=== PATIENT | male | born 2000 | race Caucasian/White ===

== ENCOUNTER 2022-06-11 20:28 | Inpatient (IN) ==
[2022-06-11] MEDS ORDERED: ETOMIDATE 20 MG/10 ML VIAL IV STA (20:48)
[2022-06-11] MEDS ORDERED: SODIUM CHLORIDE 0.9% 1,000 ML IV STA ×2 (20:48→20:49)
[2022-06-11] MEDS ORDERED: ROCURONIUM 100 MG/10 ML VIAL IV STA (20:48)
[2022-06-11 20:57] LABS: Hematocrit 45.7 VOL% (42.0-52.0); Hemoglobin 15.8 GM/DL (14.0-18.0); Immature Granulocytes % 0.2 %; Immature Granulocytes Absolute 0.02 #; Lymphocytes # 0.4 10*3/uL (1.4-4.0); Lymphocytes % 4.9 % (21.2-54.2); Mean Corpuscular HGB Conc 34.6 GM/DL (32-36); Mean Corpuscular Volume 86.7 FL (87-102); Monocytes # 0.4 10*3/uL (0.11-0.8); Monocytes % 4.7 % (1.7-12.7); Neutrophils % 90.2 % (38.7-73.9); Platelet Count 188 T/CUMM (130-400); Red Blood Count 5.27 MC/CUMM (3.8-5.5); Red Cell Distribution Width 12.3 % (9.3-17.3); White Blood Count 8.7 T/CUMM (4-12)
[2022-06-11 21:05] LABS: INR 0.9; PT Patient Result 10.4 SECS (10.1-12.1)
[2022-06-11 21:12] LABS: Bilirubin,Urine Negative (Negative); Glucose,Urine (UA) Negative (Negative); Hyaline Casts,Urine 8 /LPF (0-3); Ketones,Urine Trace mg/dL (Negative); Mucus,Urine Occasional /LPF (Occasional); Nitrite,Urine Negative (Negative); Protein,Urine 30 mg/dL (Negative); RBC,Urine 8 /HPF (0-4); Squamous Epithelial Cell,Urine Occasional /HPF (0-10); Urine Appearance Clear (Clear); Urine Color Yellow (Yellow); Urine Specific Gravity > 1.030 (1.001-1.035); Urine pH 5.5 (4.5-8.0)
[2022-06-11 21:13] LABS: Blood, Urine Negative (Negative); Urine Urobilinogen 0.2 eU/dL (<2.0)
[2022-06-11 21:25] LABS: Barbiturates Screen,Urine Negative (Negative); Benzodiazepines Screen,Urine Negative (Negative); Cannabinoid Screen,Urine Negative (Negative); Opiate Screen,Urine Negative (Negative); Phencyclidine Screen,Urine Negative (Negative)
[2022-06-11 21:27] LABS: Alanine Aminotransferase 35 U/L (16-61); Alkaline Phosphatase 116 U/L (45-117); Aspartate Amino Transferase 46 U/L (0-37); Blood Urea Nitrogen 21 MG/DL (7-18); Calcium 9.6 MG/DL (8.5-10.1); Carbon Dioxide 21 MMOL/L (21-32); Chloride 107 MMOL/L (98-107); Glucose 145 MG/DL (74-106); Osmolality,Calculated 284.4 MOS/KG (273-304); Potassium 4.4 MMOL/L (3.5-5.1); Sodium 140 MMOL/L (136-145); Total Protein 7.5 G/DL (6.4-8.2)
[2022-06-11 21:33] LABS: Band Neutrophils 21 % (0-10); Lymphocytes 6 % (20-55); Platelet Estimate Normal; Total Cells Counted 100
[2022-06-11] MEDS ORDERED: PIPERACILLIN/TAZOBACTAM 3,375 MG in SODIUM CHLORIDE 0.9% 100 ML IV STA (22:02)
[2022-06-11 22:03] LABS: Arterial Base Excess iSTAT -4 MMOL/L (-2.5-2.5); Arterial Bicarbonate iSTAT 26.4 MMOL/L (20-26); Arterial O2 Saturation iSTAT 100 % (95-100); Arterial PCO2 iSTAT 70 MM HG (35-48); Arterial PO2 iSTAT 276 MM HG (80-95); Arterial Total CO2 iSTAT 28 MMO/L (23-27); Arterial pH iSTAT 7.183 (7.35-7.45)
[2022-06-12 00:55] LABS: Arterial Base Excess iSTAT -6 MMOL/L (-2.5-2.5); Arterial Bicarbonate iSTAT 20.8 MMOL/L (20-26); Arterial O2 Saturation iSTAT 94 % (95-100); Arterial PCO2 iSTAT 46 MM HG (35-48); Arterial PO2 iSTAT 82 MM HG (80-95); Arterial Total CO2 iSTAT 22 MMO/L (23-27); Arterial pH iSTAT 7.259 (7.35-7.45)
[2022-06-12] MEDS ORDERED: SODIUM CHLORIDE 0.9% 1,000 ML IV SCH (01:00)
[2022-06-12] MEDS ORDERED: INFLUENZA VIRUS VACCINE 0.5 ML SYRINGE IM ONE (01:40)
[2022-06-12] MEDS: NOREPINEPHRINE DRIP 8 MG/250 ML PREMIX IV PRN ×2 (02:24→10:36)
[2022-06-12 04:04] LABS: Arterial Base Excess iSTAT -4 MMOL/L (-2.5-2.5); Arterial Bicarbonate iSTAT 20.9 MMOL/L (20-26); Arterial O2 Saturation iSTAT 98 % (95-100); Arterial PCO2 iSTAT 35 MM HG (35-48); Arterial PO2 iSTAT 114 MM HG (80-95); Arterial Total CO2 iSTAT 22 MMO/L (23-27); Arterial pH iSTAT 7.382 (7.35-7.45)
[2022-06-12 04:18] LABS: Salicylate < 2.8 MG/DL (2.8-20)
[2022-06-12 04:22] LABS: Albumin 3.3 G/DL (3.4-5.0); Bilirubin,Total 0.8 MG/DL (0.20-1.00); Calcium 8.3 MG/DL (8.5-10.1); Osmolality,Calculated 284.4 MOS/KG (273-304); Potassium 3.9 MMOL/L (3.5-5.1); Total Protein 6.3 G/DL (6.4-8.2)
[2022-06-12 04:30] LABS: Hematocrit 32.2 VOL% (42.0-52.0); Hemoglobin 11.3 GM/DL (14.0-18.0); Immature Granulocytes % 0.2 %; Immature Granulocytes Absolute 0.01 #; Lymphocytes # 0.4 10*3/uL (1.4-4.0); Lymphocytes % 7.7 % (21.2-54.2); Mean Corpuscular HGB Conc 35.1 GM/DL (32-36); Mean Corpuscular Volume 87.5 FL (87-102); Mean Platelet Volume 10.9 FL (9.6-12.0); Monocytes # 0.2 10*3/uL (0.11-0.8); Monocytes % 3.1 % (1.7-12.7); Platelet Count 127 T/CUMM (130-400); Red Blood Count 3.68 MC/CUMM (3.8-5.5); Red Cell Distribution Width 12.4 % (9.3-17.3); White Blood Count 4.8 T/CUMM (4-12)
[2022-06-12 04:56] LABS: Band Neutrophils 9 % (0-10); Eosinophils 1 % (0-10); Lymphocytes 9 % (20-55); Nucleated Red Blood Cells 1 /100 WBC (0-5); Total Cells Counted 100
[2022-06-12 04:57] LABS: Microcytosis 1+; Platelet Estimate Adequate
[2022-06-12] MEDS ORDERED: MAGNESIUM SULF RIDER 2 GM/50 ML PREMIX IV ONE (05:50)
[2022-06-12] MEDS ORDERED: LACTATED RINGERS 1,000 ML IV ONE (07:26)
[2022-06-12] MEDS ORDERED: LACTATED RINGERS 1,000 ML IV SCH (07:30)
[2022-06-12] MEDS: PIPERACILLIN/TAZOBACTAM 3,375 MG in SODIUM CHLORIDE 0.9% 100 ML IV SCH ×3 (07:55→22:50)
[2022-06-12] MEDS: SODIUM BICARB INJ 150 MEQ in STERILE WATER INJ 1,000 ML IV SCH ×3 (08:53→20:31)
[2022-06-12] MEDS: PANTOPRAZOLE 40 MG VIAL IV SCH (09:42)
[2022-06-12] MEDS: ENOXAPARIN 40 MG/0.4 ML SYRINGE SUBCUT SCH (09:42)
[2022-06-12] MEDS ORDERED: LORazepam 2 MG/1 ML VIAL IV ONE ×2 (10:14→11:04)
[2022-06-12] MEDS ORDERED: LORazepam 2 MG/1 ML VIAL ONE (10:14)
[2022-06-12] MEDS ORDERED: MAGNESIUM SULFATE 1 GM/2 ML VIAL IV ONE (10:21)
[2022-06-12] MEDS ORDERED: SODIUM BICARBONATE 50 MEQ/50 ML SYRINGE IV ONE (10:23)
[2022-06-12] MEDS ORDERED: ATROPINE 1 MG/10 ML SYRINGE IV ONE (10:23)
[2022-06-12] MEDS ORDERED: EPINEPHrine 1 MG/10 ML SYRINGE IV ONE (10:24)
[2022-06-12] MEDS ORDERED: PHENYTOIN 250 MG/5 ML VIAL IV ONE (10:27)
[2022-06-12] MEDS ORDERED: MIDAZOLAM DRIP 100 MG/100 ML PREMIX IV ONE (10:32)
[2022-06-12] MEDS ORDERED: levETIRAcetam 500 MG/5 ML VIAL IV ONE (10:35)
[2022-06-12 10:49] LABS: Basophils % 0.1 % (0.0-0.8); Eosinophils % 0.1 % (0.00-10.9); Hematocrit 37.6 VOL% (42.0-52.0); Hemoglobin 12.4 GM/DL (14.0-18.0); Immature Granulocytes % 0.7 %; Immature Granulocytes Absolute 0.05 #; Lymphocytes # 0.8 10*3/uL (1.4-4.0); Lymphocytes % 11.3 % (21.2-54.2); Mean Platelet Volume 11.5 FL (9.6-12.0); Monocytes # 0.1 10*3/uL (0.11-0.8); Monocytes % 1.5 % (1.7-12.7); Neutrophils % 86.3 % (38.7-73.9); Platelet Count 165 T/CUMM (130-400); Red Blood Count 4.13 MC/CUMM (3.8-5.5); Red Cell Distribution Width 12.7 % (9.3-17.3); White Blood Count 7.5 T/CUMM (4-12)
[2022-06-12] MEDS ORDERED: DEXTROSE 50% 25 GM/50 ML SYRINGE IV ONE (10:49)
[2022-06-12] MEDS ORDERED: CALCIUM CHLORIDE 1,000 MG/10 ML SYRINGE IV ONE (10:53)
[2022-06-12] MEDS ORDERED: AMIODARONE 150 MG/3 ML VIAL IV ONE (10:54)
[2022-06-12] MEDS ORDERED: FAT EMULSION 20% 100 ML IV ONE (11:12)
[2022-06-12 11:15] LABS: Alanine Aminotransferase 97 U/L (16-61); Albumin 2.3 G/DL (3.4-5.0); Alkaline Phosphatase 76 U/L (45-117); Aspartate Amino Transferase 242 U/L (0-37); Blood Urea Nitrogen 20 MG/DL (7-18); Calcium 7.2 MG/DL (8.5-10.1); Carbon Dioxide 24 MMOL/L (21-32); Chloride 105 MMOL/L (98-107); Glucose 341 MG/DL (74-106); Potassium 4.2 MMOL/L (3.5-5.1); Sodium 143 MMOL/L (136-145); Total Protein 4.6 G/DL (6.4-8.2)
[2022-06-12 11:23] LABS: Arterial Bicarbonate iSTAT 22.5 MMOL/L (20-26); Arterial pH iSTAT 7.116 (7.35-7.45)
[2022-06-12 11:31] LABS: Anisocytosis Slight; Band Neutrophils 37 % (0-10); Lymphocytes 14 % (20-55); Metamyelocytes 1 %; Platelet Estimate Normal; Total Cells Counted 100
[2022-06-12] MEDS ORDERED: NOREPINEPHRINE 16 MG in SODIUM CHLORIDE 0.9% 234 ML IV PRN (12:00)
[2022-06-12] MEDS ORDERED: POTASSIUM CHLORIDE 20 MEQ TABLET PO ONE (13:54)
[2022-06-12 14:46] LABS: Arterial Bicarbonate iSTAT 26.3 MMOL/L (20-26); Arterial pH iSTAT 7.466 (7.35-7.45)
[2022-06-12] MEDS: NOREPINEPHRINE 32 MG in SODIUM CHLORIDE 0.9% 468 ML IV PRN ×2 (15:56→22:36)
[2022-06-12 17:17] LABS: Urine Appearance Slightly Cloudy (Clear); Urine Color Yellow (Yellow); Urine Specific Gravity >= 1.030 (1.001-1.035); Urine pH 5.5 (4.5-8.0)
[2022-06-12 17:18] LABS: Bilirubin,Urine Negative (Negative); Blood, Urine Large mg/dL (Negative); Glucose,Urine (UA) Negative (Negative); Ketones,Urine Negative (Negative); Nitrite,Urine Negative (Negative); Protein,Urine 100 mg/dL (Negative); Urine Urobilinogen 0.2 eU/dL (<2.0)
[2022-06-12 17:19] LABS: Mucus,Urine Occasional /LPF (Occasional); RBC,Urine 12 /HPF (0-4)
[2022-06-12] MEDS: MIDAZOLAM DRIP 100 MG/100 ML PREMIX IV PRN ×2 (20:22→20:28)
[2022-06-12] MEDS: FOSPHENYTOIN 100 MG.PE/2 ML VIAL IV SCH (21:41)
[2022-06-13] MEDS: SODIUM BICARB INJ 150 MEQ in STERILE WATER INJ 1,000 ML IV SCH ×5 (03:11→23:32)
[2022-06-13 04:51] LABS: Basophils % 0.2 % (0.0-0.8); Hematocrit 37.7 VOL% (42.0-52.0); Immature Granulocytes % 0.6 %; Immature Granulocytes Absolute 0.07 #; Lymphocytes % 8.4 % (21.2-54.2); Mean Corpuscular HGB Conc 34.5 GM/DL (32-36); Mean Corpuscular Volume 87.3 FL (87-102); Mean Platelet Volume 11.3 FL (9.6-12.0); Monocytes # 0.5 10*3/uL (0.11-0.8); Monocytes % 4.4 % (1.7-12.7); Neutrophils % 86.4 % (38.7-73.9); Platelet Count 145 T/CUMM (130-400); Red Blood Count 4.32 MC/CUMM (3.8-5.5); Red Cell Distribution Width 12.7 % (9.3-17.3); White Blood Count 11.7 T/CUMM (4-12)
[2022-06-13 05:15] LABS: Albumin 2.5 G/DL (3.4-5.0); Bilirubin,Total 1.2 MG/DL (0.20-1.00); Calcium 7.8 MG/DL (8.5-10.1); Osmolality,Calculated 281.4 MOS/KG (273-304); Potassium 3.2 MMOL/L (3.5-5.1); Total Protein 5.5 G/DL (6.4-8.2)
[2022-06-13 05:22] LABS: Arterial Bicarbonate iSTAT 26.3 MMOL/L (20-26); Arterial pH iSTAT 7.511 (7.35-7.45)
[2022-06-13] MEDS: NOREPINEPHRINE 32 MG in SODIUM CHLORIDE 0.9% 468 ML IV PRN ×2 (06:45→15:10)
[2022-06-13] MEDS: MIDAZOLAM DRIP 100 MG/100 ML PREMIX IV PRN (07:59)
[2022-06-13] MEDS ORDERED: POTASSIUM CHLORIDE 20 MEQ TABLET PO PRN (08:04)
[2022-06-13] MEDS: PIPERACILLIN/TAZOBACTAM 3,375 MG in SODIUM CHLORIDE 0.9% 100 ML IV SCH ×3 (08:40→23:16)
[2022-06-13] MEDS: FOSPHENYTOIN 100 MG.PE/2 ML VIAL IV SCH ×2 (08:41→21:00)
[2022-06-13] MEDS: ENOXAPARIN 40 MG/0.4 ML SYRINGE SUBCUT SCH (08:43)
[2022-06-13] MEDS: PANTOPRAZOLE 40 MG VIAL IV SCH (08:43)
[2022-06-13] MEDS ORDERED: POTASSIUM CHLORIDE RIDER 10 MEQ/100 ML PREMIX IV PRN (09:40)
[2022-06-13 12:25] LABS: ABG Base Excess 4.3 MMOL/L (-2.5-2.5); ABG HCO3 28.3 MMOL/L (20-26); ABG Oxygen Saturation 99.4 % (95-100); ABG PCO2 28.6 MM HG (35-48); ABG PH 7.562 (7.35-7.45); ABG TCO2 22.5 MMOL/L (23-27)
[2022-06-13 13:12] LABS: Calcium 7.3 MG/DL (8.5-10.1); Osmolality,Calculated 281.3 MOS/KG (273-304); Potassium 3.2 MMOL/L (3.5-5.1)
[2022-06-13] MEDS: LACTATED RINGERS 1,000 ML IV SCH ×2 (14:25→23:32)
[2022-06-13] MEDS: POTASSIUM CHLORIDE RIDER 20 MEQ/100 ML PREMIX IV PRN ×2 (14:34→19:48)
[2022-06-13] MEDS ORDERED: ACETAMINOPHEN 650 MG SUPP RECTAL PRN (16:04)
[2022-06-13] MEDS ORDERED: methylPREDNISolone SOD SUC 40 MG/1 ML VIAL IV ONE (17:06)
[2022-06-13] MEDS ORDERED: FAMOTIDINE 20 MG/2 ML VIAL IV ONE (17:06)
[2022-06-13 18:44] LABS: ABG Base Excess 1.3 MMOL/L (-2.5-2.5); ABG HCO3 25.6 MMOL/L (20-26); ABG Oxygen Saturation 99.3 % (95-100); ABG PCO2 29.6 MM HG (35-48); ABG PH 7.508 (7.35-7.45); ABG TCO2 20.7 MMOL/L (23-27)
[2022-06-13] MEDS: MORPHINE 2 MG/1 ML SYRINGE IV PRN (19:48)
[2022-06-14] MEDS: MORPHINE 2 MG/1 ML SYRINGE IV PRN ×4 (03:47→21:03)
[2022-06-14 04:05] LABS: Arterial Bicarbonate iSTAT 21.1 MMOL/L (20-26); Arterial pH iSTAT 7.477 (7.35-7.45)
[2022-06-14 04:13] LABS: Hematocrit 32.2 VOL% (42.0-52.0); Hemoglobin 11.2 GM/DL (14.0-18.0); Immature Granulocytes % 0.7 %; Immature Granulocytes Absolute 0.05 #; Lymphocytes # 0.4 10*3/uL (1.4-4.0); Mean Corpuscular HGB Conc 34.8 GM/DL (32-36); Mean Corpuscular Volume 87.5 FL (87-102); Mean Platelet Volume 11.5 FL (9.6-12.0); Monocytes # 0.1 10*3/uL (0.11-0.8); Monocytes % 1.6 % (1.7-12.7); Neutrophils % 92.7 % (38.7-73.9); Platelet Count 122 T/CUMM (130-400); Red Blood Count 3.68 MC/CUMM (3.8-5.5); Red Cell Distribution Width 12.6 % (9.3-17.3); White Blood Count 7.7 T/CUMM (4-12)
[2022-06-14 04:35] LABS: Albumin 2.2 G/DL (3.4-5.0); Bilirubin,Total 0.7 MG/DL (0.20-1.00); Osmolality,Calculated 273.1 MOS/KG (273-304); Potassium 3.6 MMOL/L (3.5-5.1); Total Protein 4.9 G/DL (6.4-8.2)
[2022-06-14 04:42] LABS: Band Neutrophils 2 % (0-10); Lymphocytes 9 % (20-55); Total Cells Counted 100
[2022-06-14 04:43] LABS: Microcytosis Slight
[2022-06-14 04:44] LABS: Platelet Estimate Normal
[2022-06-14] MEDS: POTASSIUM CHLORIDE RIDER 20 MEQ/100 ML PREMIX IV PRN (05:45)
[2022-06-14] MEDS: PIPERACILLIN/TAZOBACTAM 3,375 MG in SODIUM CHLORIDE 0.9% 100 ML IV SCH ×2 (08:30→15:51)
[2022-06-14] MEDS: ENOXAPARIN 40 MG/0.4 ML SYRINGE SUBCUT SCH (08:30)
[2022-06-14] MEDS: FOSPHENYTOIN 100 MG.PE/2 ML VIAL IV SCH ×2 (08:31→21:03)
[2022-06-14] MEDS: PANTOPRAZOLE 40 MG VIAL IV SCH (08:34)
[2022-06-14] MEDS: LACTATED RINGERS 1,000 ML IV SCH ×2 (09:39→12:16)
[2022-06-14] MEDS: SODIUM BICARB INJ 150 MEQ in STERILE WATER INJ 1,000 ML IV SCH ×2 (12:18→17:44)
[2022-06-14] MEDS ORDERED: MIDAZOLAM 2 MG/2 ML VIAL IV ONE (13:46)
[2022-06-14] MEDS: MIDAZOLAM 2 MG/2 ML VIAL IV PRN (21:05)
[2022-06-14] MEDS: dexmedeTOMIDine DRIP 400 MCG/100 ML PREMIX IV PRN (21:08)
[2022-06-15] MEDS: PIPERACILLIN/TAZOBACTAM 3,375 MG in SODIUM CHLORIDE 0.9% 100 ML IV SCH ×3 (00:14→15:40)
[2022-06-15] MEDS: dexmedeTOMIDine DRIP 400 MCG/100 ML PREMIX IV PRN ×2 (03:45→14:58)
[2022-06-15 04:15] LABS: Arterial Bicarbonate iSTAT 25.5 MMOL/L (20-26); Arterial pH iSTAT 7.432 (7.35-7.45)
[2022-06-15 04:46] LABS: Basophils % 0.1 % (0.0-0.8); Eosinophils % 0.2 % (0.00-10.9); Hematocrit 30.7 VOL% (42.0-52.0); Hemoglobin 10.6 GM/DL (14.0-18.0); Immature Granulocytes % 0.4 %; Immature Granulocytes Absolute 0.04 #; Lymphocytes # 1.4 10*3/uL (1.4-4.0); Lymphocytes % 15.2 % (21.2-54.2); Mean Corpuscular HGB Conc 34.5 GM/DL (32-36); Mean Platelet Volume 11.3 FL (9.6-12.0); Monocytes # 0.3 10*3/uL (0.11-0.8); Monocytes % 3.5 % (1.7-12.7); Neutrophils % 80.6 % (38.7-73.9); Platelet Count 128 T/CUMM (130-400); Red Blood Count 3.49 MC/CUMM (3.8-5.5); Red Cell Distribution Width 12.7 % (9.3-17.3); White Blood Count 9.4 T/CUMM (4-12)
[2022-06-15 05:12] LABS: Albumin 2.2 G/DL (3.4-5.0); Bilirubin,Total 0.4 MG/DL (0.20-1.00); Calcium 8.1 MG/DL (8.5-10.1); Osmolality,Calculated 280.4 MOS/KG (273-304); Potassium 3.5 MMOL/L (3.5-5.1)
[2022-06-15] MEDS: SODIUM BICARB INJ 150 MEQ in STERILE WATER INJ 1,000 ML IV SCH (05:19)
[2022-06-15] MEDS: POTASSIUM CHLORIDE RIDER 20 MEQ/100 ML PREMIX IV PRN ×2 (05:23→21:40)
[2022-06-15] MEDS: MIDAZOLAM 2 MG/2 ML VIAL IV PRN (08:10)
[2022-06-15] MEDS: MORPHINE 2 MG/1 ML SYRINGE IV PRN ×3 (08:10→15:29)
[2022-06-15] MEDS ORDERED: LACTATED RINGERS 1,000 ML IV ONE (09:13)
[2022-06-15] MEDS ORDERED: MAGNESIUM SULF RIDER 4 GM/100 ML PREMIX IV PRN (09:17)
[2022-06-15] MEDS ORDERED: MAGNESIUM SULF RIDER 2 GM/50 ML PREMIX IV PRN (09:17)
[2022-06-15] MEDS: FOSPHENYTOIN 100 MG.PE/2 ML VIAL IV SCH ×2 (09:21→21:40)
[2022-06-15] MEDS: ENOXAPARIN 40 MG/0.4 ML SYRINGE SUBCUT SCH (09:25)
[2022-06-15] MEDS: PANTOPRAZOLE 40 MG VIAL IV SCH (09:26)
[2022-06-15] MEDS: NOREPINEPHRINE DRIP 8 MG/250 ML PREMIX IV PRN (09:42)
[2022-06-15] MEDS ORDERED: FUROSEMIDE 40 MG/4 ML VIAL IV ONE (13:43)
[2022-06-15] MEDS ORDERED: POTASSIUM CHLORIDE 20 MEQ TABLET PO ONE (15:43)
[2022-06-15 20:10] LABS: Calcium 8.3 MG/DL (8.5-10.1); Osmolality,Calculated 283.3 MOS/KG (273-304); Potassium 3.5 MMOL/L (3.5-5.1)
[2022-06-16] MEDS: MORPHINE 2 MG/1 ML SYRINGE IV PRN ×4 (00:30→20:12)
[2022-06-16] MEDS: PIPERACILLIN/TAZOBACTAM 3,375 MG in SODIUM CHLORIDE 0.9% 100 ML IV SCH ×4 (00:40→23:40)
[2022-06-16] MEDS: dexmedeTOMIDine DRIP 400 MCG/100 ML PREMIX IV PRN (03:33)
[2022-06-16 03:52] LABS: Arterial Bicarbonate iSTAT 27.8 MMOL/L (20-26); Arterial pH iSTAT 7.435 (7.35-7.45)
[2022-06-16 04:02] LABS: Basophils % 0.3 % (0.0-0.8); Eosinophils # 0.2 10*3/uL (0.0-0.87); Eosinophils % 2.3 % (0.00-10.9); Hemoglobin 11.9 GM/DL (14.0-18.0); Immature Granulocytes Absolute 0.08 #; Lymphocytes # 1.2 10*3/uL (1.4-4.0); Lymphocytes % 15.4 % (21.2-54.2); Mean Platelet Volume 10.4 FL (9.6-12.0); Monocytes # 0.4 10*3/uL (0.11-0.8); Monocytes % 4.9 % (1.7-12.7); Neutrophils % 76.1 % (38.7-73.9); Platelet Count 173 T/CUMM (130-400); Red Blood Count 3.89 MC/CUMM (3.8-5.5); Red Cell Distribution Width 13.2 % (9.3-17.3); White Blood Count 7.8 T/CUMM (4-12)
[2022-06-16 04:25] LABS: Alanine Aminotransferase 120 U/L (16-61); Albumin 2.2 G/DL (3.4-5.0); Alkaline Phosphatase 72 U/L (45-117); Aspartate Amino Transferase 115 U/L (0-37); Bilirubin,Total < 0.39 MG/DL (0.20-1.00); Blood Urea Nitrogen 20 MG/DL (7-18); Calcium 8.7 MG/DL (8.5-10.1); Carbon Dioxide 27 MMOL/L (21-32); Chloride 107 MMOL/L (98-107); Glucose 112 MG/DL (74-106); Osmolality,Calculated 284.3 MOS/KG (273-304); Potassium 3.7 MMOL/L (3.5-5.1); Sodium 141 MMOL/L (136-145); Total Protein 6.2 G/DL (6.4-8.2)
[2022-06-16] MEDS: NOREPINEPHRINE DRIP 8 MG/250 ML PREMIX IV PRN (04:50)
[2022-06-16] MEDS: ENOXAPARIN 40 MG/0.4 ML SYRINGE SUBCUT SCH (08:25)
[2022-06-16] MEDS: FOSPHENYTOIN 100 MG.PE/2 ML VIAL IV SCH ×2 (08:25→23:40)
[2022-06-16] MEDS: PANTOPRAZOLE 40 MG VIAL IV SCH (08:26)
[2022-06-16] MEDS ORDERED: FUROSEMIDE 40 MG/4 ML VIAL IV ONE (09:01)
[2022-06-16 09:02] LABS: Arterial Base Excess iSTAT 4 MMOL/L (-2.5-2.5); Arterial Bicarbonate iSTAT 29.8 MMOL/L (20-26); Arterial O2 Saturation iSTAT 97 % (95-100); Arterial PCO2 iSTAT 49 MM HG (35-48); Arterial PO2 iSTAT 93 MM HG (80-95); Arterial Total CO2 iSTAT 31 MMO/L (23-27); Arterial pH iSTAT 7.391 (7.35-7.45)
[2022-06-16] MEDS ORDERED: PHENOL 1.4% THROAT SPRAY 177 ML BOTTLE PO PRN (12:44)
[2022-06-16] MEDS ORDERED: methylPREDNISolone SOD SUC 40 MG/1 ML VIAL IV SCH (14:00)
[2022-06-16] MEDS ORDERED: ACETAMINOPHEN 325 MG TABLET PO PRN (14:24)
[2022-06-16] MEDS: HYDROcodone/CHLORPHENIRAMINE ER 5 ML UDCUP PO SCH (14:37)
[2022-06-16] MEDS: ALBUTEROL 2.5 MG/3 ML NEB RESP TX PRN (16:26)
[2022-06-16] MEDS ORDERED: methylPREDNISolone SOD SUC 125 MG/2 ML VIAL IV ONE (18:20)
[2022-06-16] MEDS ORDERED: RACEPINEPHRINE 0.5 ML NEB RESP TX ONE ×2 (18:41→18:46)
[2022-06-16] MEDS: FAMOTIDINE 20 MG/2 ML VIAL IV SCH (18:52)
[2022-06-16] MEDS ORDERED: MIDAZOLAM 10 MG/2 ML VIAL ONE ×2 (18:56→18:57)
[2022-06-16] MEDS ORDERED: ETOMIDATE 20 MG/10 ML VIAL IV ONE ×2 (18:57→19:08)
[2022-06-16] MEDS ORDERED: MIDAZOLAM 2 MG/2 ML VIAL IV ONE (19:07)
[2022-06-16] MEDS ORDERED: ROCURONIUM 100 MG/10 ML VIAL IV ONE ×2 (19:12→19:13)
[2022-06-16] MEDS: MIDAZOLAM DRIP 100 MG/100 ML PREMIX IV PRN (19:25)
[2022-06-16] MEDS: methylPREDNISolone SOD SUC 40 MG/1 ML VIAL IV SCH (19:27)
[2022-06-16] MEDS ORDERED: LORazepam 2 MG/1 ML VIAL IV ONE ×4 (19:29→19:39)
[2022-06-16] MEDS ORDERED: LORazepam 2 MG/1 ML VIAL ONE (19:29)
[2022-06-16] MEDS: fentaNYL INJ 1,250 MCG in SODIUM CHLORIDE 0.9% 225 ML IV PRN (20:22)
[2022-06-16 21:19] LABS: Arterial Base Excess iSTAT 3 MMOL/L (-2.5-2.5); Arterial Bicarbonate iSTAT 29.3 MMOL/L (20-26); Arterial O2 Saturation iSTAT 97 % (95-100); Arterial PCO2 iSTAT 48 MM HG (35-48); Arterial PO2 iSTAT 98 MM HG (80-95); Arterial Total CO2 iSTAT 31 MMO/L (23-27)
[2022-06-16 22:25] LABS: Calcium 9.3 MG/DL (8.5-10.1); Osmolality,Calculated 278.7 MOS/KG (273-304); Potassium 4.4 MMOL/L (3.5-5.1)
[2022-06-16] MEDS ORDERED: FOSPHENYTOIN 1,000 MG.PE in SODIUM CHLORIDE 0.9% 250 ML IV ONE ×2 (23:17→23:30)
[2022-06-16] MEDS: ACETYLCYSTEINE 20% 800 MG/4 ML VIAL RESP TX SCH (23:25)
[2022-06-17] MEDS: HYDROcodone/CHLORPHENIRAMINE ER 5 ML UDCUP PO SCH (02:42)
[2022-06-17] MEDS: methylPREDNISolone SOD SUC 40 MG/1 ML VIAL IV SCH ×4 (02:42→20:47)
[2022-06-17 04:02] LABS: Arterial Base Excess iSTAT 4 MMOL/L (-2.5-2.5); Arterial Bicarbonate iSTAT 31.2 MMOL/L (20-26); Arterial O2 Saturation iSTAT 98 % (95-100); Arterial PCO2 iSTAT 60 MM HG (35-48); Arterial PO2 iSTAT 123 MM HG (80-95); Arterial Total CO2 iSTAT 33 MMO/L (23-27); Arterial pH iSTAT 7.322 (7.35-7.45)
[2022-06-17] MEDS: fentaNYL INJ 1,250 MCG in SODIUM CHLORIDE 0.9% 225 ML IV PRN ×2 (04:09→17:32)
[2022-06-17] MEDS: MIDAZOLAM DRIP 100 MG/100 ML PREMIX IV PRN ×2 (06:33→17:20)
[2022-06-17] MEDS: FAMOTIDINE 20 MG/2 ML VIAL IV SCH ×2 (06:39→18:26)
[2022-06-17 06:43] LABS: Basophils % 0.2 % (0.0-0.8); Hematocrit 34.2 VOL% (42.0-52.0); Hemoglobin 11.4 GM/DL (14.0-18.0); Immature Granulocytes % 1.4 %; Immature Granulocytes Absolute 0.13 #; Lymphocytes # 0.8 10*3/uL (1.4-4.0); Lymphocytes % 8.8 % (21.2-54.2); Mean Corpuscular HGB Conc 33.3 GM/DL (32-36); Mean Corpuscular Volume 91.7 FL (87-102); Mean Platelet Volume 10.1 FL (9.6-12.0); Monocytes # 0.3 10*3/uL (0.11-0.8); Monocytes % 3.6 % (1.7-12.7); Platelet Count 189 T/CUMM (130-400); Red Blood Count 3.73 MC/CUMM (3.8-5.5); Red Cell Distribution Width 12.8 % (9.3-17.3); White Blood Count 9.1 T/CUMM (4-12)
[2022-06-17] MEDS: ALBUTEROL 2.5 MG/3 ML NEB RESP TX PRN (06:45)
[2022-06-17] MEDS: ACETYLCYSTEINE 20% 800 MG/4 ML VIAL RESP TX SCH ×2 (06:45→12:26)
[2022-06-17 07:07] LABS: Anisocytosis 1+; Platelet Estimate Normal
[2022-06-17 07:16] LABS: Alanine Aminotransferase 105 U/L (16-61); Albumin 2.3 G/DL (3.4-5.0); Alkaline Phosphatase 71 U/L (45-117); Aspartate Amino Transferase 86 U/L (0-37); Bilirubin,Total < 0.39 MG/DL (0.20-1.00); Blood Urea Nitrogen 26 MG/DL (7-18); Carbon Dioxide 30 MMOL/L (21-32); Chloride 104 MMOL/L (98-107); Glucose 116 MG/DL (74-106); Osmolality,Calculated 282.5 MOS/KG (273-304); Potassium 4.8 MMOL/L (3.5-5.1); Sodium 139 MMOL/L (136-145); Total Protein 6.3 G/DL (6.4-8.2)
[2022-06-17] MEDS: ENOXAPARIN 40 MG/0.4 ML SYRINGE SUBCUT SCH (08:28)
[2022-06-17] MEDS: PANTOPRAZOLE 40 MG VIAL IV SCH (08:28)
[2022-06-17] MEDS: PIPERACILLIN/TAZOBACTAM 3,375 MG in SODIUM CHLORIDE 0.9% 100 ML IV SCH ×2 (08:28→15:11)
[2022-06-17] MEDS: FOSPHENYTOIN 100 MG.PE/2 ML VIAL IV SCH ×2 (09:37→20:47)
[2022-06-17 10:07] LABS: Arterial Base Excess iSTAT 5 MMOL/L (-2.5-2.5); Arterial O2 Saturation iSTAT 93 % (95-100); Arterial PCO2 iSTAT 48 MM HG (35-48); Arterial PO2 iSTAT 69 MM HG (80-95); Arterial Total CO2 iSTAT 31 MMO/L (23-27); Arterial pH iSTAT 7.405 (7.35-7.45)
[2022-06-17] MEDS: ENOXAPARIN 100 MG/ML SYRINGE SUBCUT SCH (11:18)
[2022-06-17] MEDS: ALBUTEROL 2.5 MG/3 ML NEB RESP TX SCH ×2 (12:26→18:45)
[2022-06-18] MEDS: ACETYLCYSTEINE 20% 800 MG/4 ML VIAL RESP TX SCH ×3 (00:17→15:05)
[2022-06-18] MEDS: ALBUTEROL 2.5 MG/3 ML NEB RESP TX SCH ×4 (00:17→19:10)
[2022-06-18] MEDS: ENOXAPARIN 100 MG/ML SYRINGE SUBCUT SCH ×3 (00:19→23:50)
[2022-06-18] MEDS: PIPERACILLIN/TAZOBACTAM 3,375 MG in SODIUM CHLORIDE 0.9% 100 ML IV SCH ×4 (00:25→23:55)
[2022-06-18] MEDS: methylPREDNISolone SOD SUC 40 MG/1 ML VIAL IV SCH ×4 (03:23→20:09)
[2022-06-18 04:00] LABS: Arterial Bicarbonate iSTAT 28.7 MMOL/L (20-26); Arterial pH iSTAT 7.362 (7.35-7.45)
[2022-06-18] MEDS: MIDAZOLAM DRIP 100 MG/100 ML PREMIX IV PRN ×2 (04:02→15:27)
[2022-06-18 04:49] LABS: Basophils % 0.1 % (0.0-0.8); Hematocrit 32.3 VOL% (42.0-52.0); Hemoglobin 10.2 GM/DL (14.0-18.0); Immature Granulocytes % 2.1 %; Immature Granulocytes Absolute 0.18 #; Lymphocytes # 0.7 10*3/uL (1.4-4.0); Lymphocytes % 8.3 % (21.2-54.2); Mean Corpuscular HGB Conc 31.6 GM/DL (32-36); Mean Corpuscular Volume 92.6 FL (87-102); Mean Platelet Volume 10.1 FL (9.6-12.0); Monocytes # 0.3 10*3/uL (0.11-0.8); Monocytes % 3.4 % (1.7-12.7); Neutrophils % 86.1 % (38.7-73.9); Platelet Count 225 T/CUMM (130-400); Red Blood Count 3.49 MC/CUMM (3.8-5.5); Red Cell Distribution Width 12.9 % (9.3-17.3); White Blood Count 8.6 T/CUMM (4-12)
[2022-06-18 05:13] LABS: Alanine Aminotransferase 85 U/L (16-61); Albumin 2.3 G/DL (3.4-5.0); Alkaline Phosphatase 65 U/L (45-117); Aspartate Amino Transferase 53 U/L (0-37); Bilirubin,Total < 0.39 MG/DL (0.20-1.00); Blood Urea Nitrogen 24 MG/DL (7-18); Calcium 8.6 MG/DL (8.5-10.1); Carbon Dioxide 28 MMOL/L (21-32); Chloride 106 MMOL/L (98-107); Glucose 169 MG/DL (74-106); Osmolality,Calculated 284.5 MOS/KG (273-304); Phosphorous 2.2 MG/DL (2.5-4.9); Potassium 4.2 MMOL/L (3.5-5.1); Sodium 139 MMOL/L (136-145); Total Protein 6.1 G/DL (6.4-8.2)
[2022-06-18] MEDS: FAMOTIDINE 20 MG/2 ML VIAL IV SCH ×2 (06:03→17:40)
[2022-06-18] MEDS: fentaNYL INJ 1,250 MCG in SODIUM CHLORIDE 0.9% 225 ML IV PRN ×2 (08:06→19:41)
[2022-06-18] MEDS: PANTOPRAZOLE 40 MG VIAL IV SCH (08:24)
[2022-06-18] MEDS: dexmedeTOMIDine DRIP 400 MCG/100 ML PREMIX IV PRN ×3 (08:29→18:56)
[2022-06-18] MEDS ORDERED: POTASSIUM PHOSPHATE 30 MMOL in SODIUM CHLORIDE 0.9% 250 ML IV ONE (08:30)
[2022-06-18] MEDS: FOSPHENYTOIN 100 MG.PE/2 ML VIAL IV SCH (08:38)
[2022-06-18] MEDS: PHENYTOIN 100 MG/2 ML VIAL IV SCH ×2 (12:40→20:09)
[2022-06-18] MEDS: METOCLOPRAMIDE 10 MG/2 ML VIAL IV SCH (17:41)
[2022-06-19] MEDS: METOCLOPRAMIDE 10 MG/2 ML VIAL IV SCH ×5 (00:03→23:29)
[2022-06-19] MEDS: dexmedeTOMIDine DRIP 400 MCG/100 ML PREMIX IV PRN ×4 (01:09→19:00)
[2022-06-19] MEDS: MIDAZOLAM DRIP 100 MG/100 ML PREMIX IV PRN ×2 (02:09→15:09)
[2022-06-19] MEDS: methylPREDNISolone SOD SUC 40 MG/1 ML VIAL IV SCH ×4 (02:39→23:19)
[2022-06-19 04:05] LABS: Arterial Bicarbonate iSTAT 23.4 MMOL/L (20-26); Arterial pH iSTAT 7.407 (7.35-7.45)
[2022-06-19 04:07] LABS: Basophils % 0.1 % (0.0-0.8); Hematocrit 32.2 VOL% (42.0-52.0); Hemoglobin 10.6 GM/DL (14.0-18.0); Immature Granulocytes % 2.5 %; Lymphocytes % 11.9 % (21.2-54.2); Mean Corpuscular HGB Conc 32.9 GM/DL (32-36); Mean Corpuscular Volume 90.7 FL (87-102); Mean Platelet Volume 9.6 FL (9.6-12.0); Monocytes # 0.3 10*3/uL (0.11-0.8); Neutrophils % 81.5 % (38.7-73.9); Platelet Count 251 T/CUMM (130-400); Red Blood Count 3.55 MC/CUMM (3.8-5.5); Red Cell Distribution Width 13.2 % (9.3-17.3)
[2022-06-19 04:32] LABS: Alanine Aminotransferase 74 U/L (16-61); Albumin 2.4 G/DL (3.4-5.0); Alkaline Phosphatase 63 U/L (45-117); Aspartate Amino Transferase 46 U/L (0-37); Bilirubin,Total < 0.39 MG/DL (0.20-1.00); Blood Urea Nitrogen 19 MG/DL (7-18); Calcium 8.5 MG/DL (8.5-10.1); Carbon Dioxide 23 MMOL/L (21-32); Chloride 112 MMOL/L (98-107); Glucose 122 MG/DL (74-106); Osmolality,Calculated 285.1 MOS/KG (273-304); Sodium 142 MMOL/L (136-145); Total Protein 6.4 G/DL (6.4-8.2)
[2022-06-19] MEDS: PHENYTOIN 100 MG/2 ML VIAL IV SCH ×3 (06:00→20:19)
[2022-06-19] MEDS: FAMOTIDINE 20 MG/2 ML VIAL IV SCH ×2 (06:01→18:30)
[2022-06-19] MEDS: ACETYLCYSTEINE 20% 800 MG/4 ML VIAL RESP TX SCH ×3 (07:21→13:47)
[2022-06-19] MEDS: ALBUTEROL 2.5 MG/3 ML NEB RESP TX SCH ×4 (07:21→19:13)
[2022-06-19] MEDS: PANTOPRAZOLE 40 MG VIAL IV SCH (08:36)
[2022-06-19] MEDS: PIPERACILLIN/TAZOBACTAM 3,375 MG in SODIUM CHLORIDE 0.9% 100 ML IV SCH ×3 (08:37→23:20)
[2022-06-19] MEDS: fentaNYL INJ 1,250 MCG in SODIUM CHLORIDE 0.9% 225 ML IV PRN (10:09)
[2022-06-19] MEDS: ENOXAPARIN 100 MG/ML SYRINGE SUBCUT SCH ×2 (11:13→23:19)
[2022-06-19] MEDS: MORPHINE 2 MG/1 ML SYRINGE IV PRN (19:37)
[2022-06-20] MEDS: dexmedeTOMIDine DRIP 400 MCG/100 ML PREMIX IV PRN ×4 (01:38→18:10)
[2022-06-20] MEDS: MIDAZOLAM DRIP 100 MG/100 ML PREMIX IV PRN ×3 (01:51→22:45)
[2022-06-20 04:33] LABS: Arterial Bicarbonate iSTAT 21.9 MMOL/L (20-26); Arterial pH iSTAT 7.477 (7.35-7.45)
[2022-06-20] MEDS: fentaNYL INJ 1,250 MCG in SODIUM CHLORIDE 0.9% 225 ML IV PRN ×2 (04:35→18:08)
[2022-06-20 04:52] LABS: Basophils % 0.4 % (0.0-0.8); Eosinophils % 0.5 % (0.00-10.9); Hematocrit 32.4 VOL% (42.0-52.0); Hemoglobin 10.7 GM/DL (14.0-18.0); Immature Granulocytes % 5.6 %; Immature Granulocytes Absolute 0.47 #; Lymphocytes # 1.9 10*3/uL (1.4-4.0); Lymphocytes % 23.3 % (21.2-54.2); Mean Corpuscular Volume 91.8 FL (87-102); Mean Platelet Volume 9.1 FL (9.6-12.0); Monocytes # 0.7 10*3/uL (0.11-0.8); Monocytes % 7.8 % (1.7-12.7); Neutrophils % 62.4 % (38.7-73.9); Platelet Count 285 T/CUMM (130-400); Red Blood Count 3.53 MC/CUMM (3.8-5.5); Red Cell Distribution Width 13.5 % (9.3-17.3); White Blood Count 8.3 T/CUMM (4-12)
[2022-06-20 04:53] LABS: Alanine Aminotransferase 155 U/L (16-61); Albumin 2.4 G/DL (3.4-5.0); Alkaline Phosphatase 69 U/L (45-117); Aspartate Amino Transferase 127 U/L (0-37); Bilirubin,Total < 0.39 MG/DL (0.20-1.00); Blood Urea Nitrogen 18 MG/DL (7-18); Calcium 8.4 MG/DL (8.5-10.1); Carbon Dioxide 23 MMOL/L (21-32); Chloride 111 MMOL/L (98-107); Glucose 96 MG/DL (74-106); Osmolality,Calculated 280.4 MOS/KG (273-304); Potassium 3.6 MMOL/L (3.5-5.1); Sodium 140 MMOL/L (136-145); Total Protein 6.1 G/DL (6.4-8.2)
[2022-06-20] MEDS: PHENYTOIN 100 MG/2 ML VIAL IV SCH ×3 (04:58→21:03)
[2022-06-20 05:18] LABS: Lymphocytes 23 % (20-55); Platelet Estimate Adequate; Total Cells Counted 100
[2022-06-20] MEDS: METOCLOPRAMIDE 10 MG/2 ML VIAL IV SCH ×2 (06:24→12:06)
[2022-06-20] MEDS: FAMOTIDINE 20 MG/2 ML VIAL IV SCH ×2 (06:30→18:15)
[2022-06-20] MEDS: ALBUTEROL 2.5 MG/3 ML NEB RESP TX SCH ×4 (07:05→19:40)
[2022-06-20] MEDS ORDERED: FUROSEMIDE 40 MG/4 ML VIAL IV ONE (07:53)
[2022-06-20] MEDS: MORPHINE 2 MG/1 ML SYRINGE IV PRN (07:53)
[2022-06-20] MEDS: ACETYLCYSTEINE 20% 800 MG/4 ML VIAL RESP TX SCH ×2 (08:45)
[2022-06-20] MEDS: PIPERACILLIN/TAZOBACTAM 3,375 MG in SODIUM CHLORIDE 0.9% 100 ML IV SCH ×3 (09:00→22:45)
[2022-06-20] MEDS: PANTOPRAZOLE 40 MG VIAL IV SCH (09:01)
[2022-06-20] MEDS: SCOPOLAMINE 1.5 MG PATCH TRANSDERM SCH (09:09)
[2022-06-20] MEDS: ENOXAPARIN 100 MG/ML SYRINGE SUBCUT SCH ×2 (12:04→22:45)
[2022-06-20] MEDS: methylPREDNISolone SOD SUC 40 MG/1 ML VIAL IV SCH ×2 (12:05→22:45)
[2022-06-20] MEDS: chlorproMAZINE 25 MG TABLET PO SCH ×2 (16:15→21:03)
[2022-06-20] MEDS: SERTRALINE 25 MG TABLET PER TUBE SCH (21:03)
[2022-06-21] MEDS: dexmedeTOMIDine DRIP 400 MCG/100 ML PREMIX IV PRN ×4 (00:10→21:37)
[2022-06-21] MEDS: ALBUTEROL 2.5 MG/3 ML NEB RESP TX SCH ×4 (00:55→19:15)
[2022-06-21 04:26] LABS: ABG Base Excess -0.5 MMOL/L (-2.5-2.5); ABG Oxygen Saturation 98.9 % (95-100); ABG PCO2 41.7 MM HG (35-48); ABG PH 7.379 (7.35-7.45); ABG TCO2 22.1 MMOL/L (23-27)
[2022-06-21 04:30] LABS: Basophils # 0.1 10*3/uL (0.0-0.2); Basophils % 0.6 % (0.0-0.8); Eosinophils # 0.1 10*3/uL (0.0-0.87); Eosinophils % 0.6 % (0.00-10.9); Hematocrit 34.6 VOL% (42.0-52.0); Hemoglobin 11.2 GM/DL (14.0-18.0); Immature Granulocytes % 5.6 %; Immature Granulocytes Absolute 0.51 #; Lymphocytes # 0.8 10*3/uL (1.4-4.0); Lymphocytes % 8.7 % (21.2-54.2); Mean Corpuscular HGB Conc 32.4 GM/DL (32-36); Mean Corpuscular Volume 92.8 FL (87-102); Mean Platelet Volume 9.4 FL (9.6-12.0); Monocytes # 0.4 10*3/uL (0.11-0.8); Monocytes % 4.6 % (1.7-12.7); Neutrophils % 79.9 % (38.7-73.9); Platelet Count 350 T/CUMM (130-400); Red Blood Count 3.73 MC/CUMM (3.8-5.5); Red Cell Distribution Width 13.2 % (9.3-17.3); White Blood Count 9.1 T/CUMM (4-12)
[2022-06-21 04:46] LABS: Alanine Aminotransferase 178 U/L (16-61); Albumin 2.4 G/DL (3.4-5.0); Alkaline Phosphatase 81 U/L (45-117); Aspartate Amino Transferase 83 U/L (0-37); Bilirubin,Total < 0.39 MG/DL (0.20-1.00); Blood Urea Nitrogen 22 MG/DL (7-18); Calcium 8.7 MG/DL (8.5-10.1); Carbon Dioxide 24 MMOL/L (21-32); Chloride 108 MMOL/L (98-107); Glucose 166 MG/DL (74-106); Osmolality,Calculated 283.5 MOS/KG (273-304); Potassium 4.1 MMOL/L (3.5-5.1); Sodium 139 MMOL/L (136-145); Total Protein 6.5 G/DL (6.4-8.2)
[2022-06-21 04:53] LABS: Eosinophils 1 % (0-10); Hypochromia Slight; Lymphocytes 4 % (20-55); Microcytosis Slight; Polychromasia Slight; Total Cells Counted 100
[2022-06-21] MEDS: PHENYTOIN 100 MG/2 ML VIAL IV SCH (05:32)
[2022-06-21] MEDS: FAMOTIDINE 20 MG/2 ML VIAL IV SCH ×2 (05:35→18:09)
[2022-06-21] MEDS: fentaNYL INJ 1,250 MCG in SODIUM CHLORIDE 0.9% 225 ML IV PRN (07:31)
[2022-06-21] MEDS: PIPERACILLIN/TAZOBACTAM 3,375 MG in SODIUM CHLORIDE 0.9% 100 ML IV SCH ×2 (07:48→15:46)
[2022-06-21] MEDS: PANTOPRAZOLE 40 MG VIAL IV SCH (08:30)
[2022-06-21] MEDS: chlorproMAZINE 25 MG TABLET PO SCH ×3 (08:30→21:04)
[2022-06-21] MEDS: MIDAZOLAM DRIP 100 MG/100 ML PREMIX IV PRN ×2 (09:45→18:36)
[2022-06-21] MEDS: POLYETHYLENE GLYCOL POWDER 17 GM PACK PO PRN (09:59)
[2022-06-21] MEDS: ENOXAPARIN 100 MG/ML SYRINGE SUBCUT SCH ×2 (10:00→23:50)
[2022-06-21] MEDS: methylPREDNISolone SOD SUC 40 MG/1 ML VIAL IV SCH ×2 (10:00→23:51)
[2022-06-21] MEDS: risperiDONE 1 MG TABLET PO SCH ×2 (21:04)
[2022-06-21] MEDS: SERTRALINE 25 MG TABLET PER TUBE SCH (21:05)
[2022-06-21] MEDS: OLANZapine 5 MG TABLET PO SCH (21:05)
[2022-06-22] MEDS: ALBUTEROL 2.5 MG/3 ML NEB RESP TX SCH ×4 (00:10→19:30)
[2022-06-22] MEDS: PIPERACILLIN/TAZOBACTAM 3,375 MG in SODIUM CHLORIDE 0.9% 100 ML IV SCH ×2 (01:18→08:13)
[2022-06-22] MEDS: dexmedeTOMIDine DRIP 400 MCG/100 ML PREMIX IV PRN ×4 (03:12→21:02)
[2022-06-22 04:47] LABS: Arterial Bicarbonate iSTAT 24.4 MMOL/L (20-26); Arterial pH iSTAT 7.432 (7.35-7.45)
[2022-06-22 04:50] LABS: Basophils % 0.3 % (0.0-0.8); Eosinophils # 0.1 10*3/uL (0.0-0.87); Eosinophils % 0.6 % (0.00-10.9); Hematocrit 34.2 VOL% (42.0-52.0); Immature Granulocytes % 4.9 %; Immature Granulocytes Absolute 0.47 #; Lymphocytes # 0.9 10*3/uL (1.4-4.0); Lymphocytes % 9.6 % (21.2-54.2); Mean Corpuscular HGB Conc 32.2 GM/DL (32-36); Mean Corpuscular Volume 92.7 FL (87-102); Mean Platelet Volume 9.2 FL (9.6-12.0); Monocytes # 0.3 10*3/uL (0.11-0.8); Monocytes % 2.9 % (1.7-12.7); Neutrophils % 81.7 % (38.7-73.9); Platelet Count 380 T/CUMM (130-400); Red Blood Count 3.69 MC/CUMM (3.8-5.5); Red Cell Distribution Width 13.3 % (9.3-17.3); White Blood Count 9.6 T/CUMM (4-12)
[2022-06-22 05:25] LABS: Alanine Aminotransferase 155 U/L (16-61); Albumin 2.5 G/DL (3.4-5.0); Alkaline Phosphatase 75 U/L (45-117); Aspartate Amino Transferase 58 U/L (0-37); Bilirubin,Total < 0.39 MG/DL (0.20-1.00); Blood Urea Nitrogen 20 MG/DL (7-18); Calcium 8.7 MG/DL (8.5-10.1); Carbon Dioxide 25 MMOL/L (21-32); Chloride 108 MMOL/L (98-107); Glucose 127 MG/DL (74-106); Osmolality,Calculated 281.5 MOS/KG (273-304); Potassium 4.3 MMOL/L (3.5-5.1); Sodium 139 MMOL/L (136-145); Total Protein 6.7 G/DL (6.4-8.2)
[2022-06-22] MEDS: FAMOTIDINE 20 MG/2 ML VIAL IV SCH (06:32)
[2022-06-22] MEDS: PANTOPRAZOLE 40 MG VIAL IV SCH (08:14)
[2022-06-22] MEDS: OXcarbazepine 300 MG TABLET PO SCH (08:14)
[2022-06-22] MEDS: chlorproMAZINE 25 MG TABLET PO SCH ×3 (08:14→20:46)
[2022-06-22] MEDS ORDERED: OXcarbazepine 300 MG TABLET PO SCH (11:06)
[2022-06-22] MEDS: methylPREDNISolone SOD SUC 40 MG/1 ML VIAL IV SCH ×2 (11:20→23:28)
[2022-06-22] MEDS: ENOXAPARIN 100 MG/ML SYRINGE SUBCUT SCH ×2 (11:53→23:32)
[2022-06-22] MEDS: MIDAZOLAM DRIP 100 MG/100 ML PREMIX IV PRN (17:46)
[2022-06-22] MEDS: OLANZapine 5 MG TABLET PO SCH (20:46)
[2022-06-22] MEDS: SERTRALINE 25 MG TABLET PER TUBE SCH (20:46)
[2022-06-22] MEDS: risperiDONE 1 MG TABLET PO SCH ×2 (20:46)
[2022-06-22] MEDS: fentaNYL INJ 1,250 MCG in SODIUM CHLORIDE 0.9% 225 ML IV PRN (23:08)
[2022-06-23] MEDS: ALBUTEROL 2.5 MG/3 ML NEB RESP TX SCH ×5 (00:57→23:59)
[2022-06-23] MEDS: dexmedeTOMIDine DRIP 400 MCG/100 ML PREMIX IV PRN ×3 (03:15→18:30)
[2022-06-23 04:17] LABS: Basophils % 0.2 % (0.0-0.8); Eosinophils % 0.1 % (0.00-10.9); Hemoglobin 11.2 GM/DL (14.0-18.0); Immature Granulocytes % 1.6 %; Lymphocytes # 0.7 10*3/uL (1.4-4.0); Mean Corpuscular Volume 93.6 FL (87-102); Mean Platelet Volume 9.5 FL (9.6-12.0); Monocytes # 0.3 10*3/uL (0.11-0.8); Monocytes % 1.7 % (1.7-12.7); Neutrophils % 92.4 % (38.7-73.9); Platelet Count 400 T/CUMM (130-400); Red Blood Count 3.74 MC/CUMM (3.8-5.5); Red Cell Distribution Width 13.5 % (9.3-17.3); White Blood Count 18.6 T/CUMM (4-12)
[2022-06-23 04:34] LABS: Arterial Bicarbonate iSTAT 27.6 MMOL/L (20-26); Arterial pH iSTAT 7.425 (7.35-7.45)
[2022-06-23 04:34] LABS: Alanine Aminotransferase 122 U/L (16-61); Albumin 2.6 G/DL (3.4-5.0); Alkaline Phosphatase 79 U/L (45-117); Aspartate Amino Transferase 34 U/L (0-37); Bilirubin,Total < 0.39 MG/DL (0.20-1.00); Blood Urea Nitrogen 17 MG/DL (7-18); Calcium 9.2 MG/DL (8.5-10.1); Carbon Dioxide 25 MMOL/L (21-32); Chloride 110 MMOL/L (98-107); Glucose 166 MG/DL (74-106); Phosphorous 3.7 MG/DL (2.5-4.9); Potassium 4.4 MMOL/L (3.5-5.1); Sodium 143 MMOL/L (136-145); Total Protein 6.9 G/DL (6.4-8.2)
[2022-06-23 05:05] LABS: Lymphocytes 5 % (20-55); Platelet Estimate Increased; Total Cells Counted 100
[2022-06-23] MEDS: MIDAZOLAM DRIP 100 MG/100 ML PREMIX IV PRN ×2 (05:12→16:00)
[2022-06-23] MEDS: fentaNYL INJ 1,250 MCG in SODIUM CHLORIDE 0.9% 225 ML IV PRN (05:38)
[2022-06-23] MEDS: OXcarbazepine 300 MG TABLET PO SCH (08:27)
[2022-06-23] MEDS: chlorproMAZINE 25 MG TABLET PO SCH ×3 (08:27→21:24)
[2022-06-23] MEDS: SCOPOLAMINE 1.5 MG PATCH TRANSDERM SCH (08:27)
[2022-06-23] MEDS: PANTOPRAZOLE 40 MG VIAL IV SCH (08:28)
[2022-06-23] MEDS: ENOXAPARIN 100 MG/ML SYRINGE SUBCUT SCH (10:01)
[2022-06-23] MEDS: methylPREDNISolone SOD SUC 40 MG/1 ML VIAL IV SCH (10:02)
[2022-06-23] MEDS: OLANZapine 5 MG TABLET PO SCH (21:24)
[2022-06-23] MEDS: risperiDONE 1 MG TABLET PO SCH ×2 (21:24)
[2022-06-23] MEDS: SERTRALINE 25 MG TABLET PER TUBE SCH (21:24)
[2022-06-24] MEDS: methylPREDNISolone SOD SUC 40 MG/1 ML VIAL IV SCH ×3 (00:23→22:33)
[2022-06-24] MEDS: ENOXAPARIN 100 MG/ML SYRINGE SUBCUT SCH ×3 (00:23→22:33)
[2022-06-24] MEDS: MIDAZOLAM DRIP 100 MG/100 ML PREMIX IV PRN (02:42)
[2022-06-24] MEDS: dexmedeTOMIDine DRIP 400 MCG/100 ML PREMIX IV PRN (02:59)
[2022-06-24 04:34] LABS: Arterial Bicarbonate iSTAT 28.6 MMOL/L (20-26); Arterial pH iSTAT 7.402 (7.35-7.45)
[2022-06-24 04:41] LABS: Basophils % 0.3 % (0.0-0.8); Hematocrit 34.7 VOL% (42.0-52.0); Immature Granulocytes % 4.2 %; Immature Granulocytes Absolute 0.43 #; Lymphocytes # 0.8 10*3/uL (1.4-4.0); Mean Corpuscular HGB Conc 31.7 GM/DL (32-36); Mean Corpuscular Volume 94.6 FL (87-102); Mean Platelet Volume 9.6 FL (9.6-12.0); Monocytes # 0.2 10*3/uL (0.11-0.8); Monocytes % 1.7 % (1.7-12.7); Neutrophils % 85.8 % (38.7-73.9); Platelet Count 387 T/CUMM (130-400); Red Blood Count 3.67 MC/CUMM (3.8-5.5); Red Cell Distribution Width 13.6 % (9.3-17.3); White Blood Count 10.29 T/CUMM (4-12)
[2022-06-24 05:03] LABS: Alanine Aminotransferase 127 U/L (16-61); Albumin 2.8 G/DL (3.4-5.0); Alkaline Phosphatase 77 U/L (45-117); Aspartate Amino Transferase 54 U/L (0-37); Bilirubin,Total < 0.39 MG/DL (0.20-1.00); Blood Urea Nitrogen 25 MG/DL (7-18); Carbon Dioxide 26 MMOL/L (21-32); Chloride 106 MMOL/L (98-107); Glucose 128 MG/DL (74-106); Osmolality,Calculated 286.3 MOS/KG (273-304); Potassium 4.5 MMOL/L (3.5-5.1); Sodium 141 MMOL/L (136-145); Total Protein 6.4 G/DL (6.4-8.2)
[2022-06-24] MEDS: ALBUTEROL 2.5 MG/3 ML NEB RESP TX SCH ×3 (07:09→20:03)
[2022-06-24] MEDS: POLYETHYLENE GLYCOL POWDER 17 GM PACK PO PRN (08:00)
[2022-06-24] MEDS: OXcarbazepine 300 MG TABLET PO SCH (08:00)
[2022-06-24] MEDS: chlorproMAZINE 25 MG TABLET PO SCH ×3 (08:00→20:48)
[2022-06-24] MEDS: PANTOPRAZOLE 40 MG VIAL IV SCH (08:00)
[2022-06-24] MEDS ORDERED: DIAZEPAM 5 MG TABLET PO ONE (13:15)
[2022-06-24] MEDS ORDERED: DIAZEPAM 5 MG TABLET ONE (13:17)
[2022-06-24] MEDS: SERTRALINE 25 MG TABLET PER TUBE SCH (20:48)
[2022-06-24] MEDS: risperiDONE 1 MG TABLET PO SCH ×2 (20:48)
[2022-06-24] MEDS: OLANZapine 5 MG TABLET PO SCH (20:48)
[2022-06-25] MEDS: ALBUTEROL 2.5 MG/3 ML NEB RESP TX SCH ×5 (00:51→23:37)
[2022-06-25 04:54] LABS: Basophils % 0.4 % (0.0-0.8); Hematocrit 36.7 VOL% (42.0-52.0); Hemoglobin 12.1 GM/DL (14.0-18.0); Immature Granulocytes % 2.4 %; Immature Granulocytes Absolute 0.24 #; Lymphocytes # 1.1 10*3/uL (1.4-4.0); Mean Corpuscular Volume 91.5 FL (87-102); Mean Platelet Volume 9.8 FL (9.6-12.0); Monocytes # 0.4 10*3/uL (0.11-0.8); Monocytes % 4.3 % (1.7-12.7); Neutrophils % 81.9 % (38.7-73.9); Platelet Count 436 T/CUMM (130-400); Red Blood Count 4.01 MC/CUMM (3.8-5.5); Red Cell Distribution Width 13.4 % (9.3-17.3); White Blood Count 10.06 T/CUMM (4-12)
[2022-06-25 05:27] LABS: Albumin 3.1 G/DL (3.4-5.0); Bilirubin,Total 0.4 MG/DL (0.20-1.00); Calcium 9.7 MG/DL (8.5-10.1); Phosphorous 4.3 MG/DL (2.5-4.9); Potassium 3.6 MMOL/L (3.5-5.1); Total Protein 7.5 G/DL (6.4-8.2)
[2022-06-25 05:29] LABS: Arterial Base Excess iSTAT 5 MMOL/L (-2.5-2.5); Arterial O2 Saturation iSTAT 98 % (95-100); Arterial PCO2 iSTAT 44 MM HG (35-48); Arterial PO2 iSTAT 104 MM HG (80-95); Arterial Total CO2 iSTAT 31 MMO/L (23-27)
[2022-06-25] MEDS: chlorproMAZINE 25 MG TABLET PO SCH ×3 (08:26→20:52)
[2022-06-25] MEDS: PANTOPRAZOLE 40 MG VIAL IV SCH (08:26)
[2022-06-25] MEDS: OXcarbazepine 300 MG TABLET PO SCH (08:26)
[2022-06-25] MEDS: ONDANSETRON 4 MG/2 ML VIAL IV PRN (10:15)
[2022-06-25] MEDS: ENOXAPARIN 100 MG/ML SYRINGE SUBCUT SCH ×2 (11:13→22:05)
[2022-06-25] MEDS: SERTRALINE 25 MG TABLET PER TUBE SCH (20:52)
[2022-06-25] MEDS: OLANZapine 5 MG TABLET PO SCH (20:52)
[2022-06-25] MEDS: risperiDONE 1 MG TABLET PO SCH ×2 (20:52)
[2022-06-26 04:58] LABS: Basophils # 0.1 10*3/uL (0.0-0.2); Basophils % 0.8 % (0.0-0.8); Eosinophils % 0.5 % (0.00-10.9); Hematocrit 37.8 VOL% (42.0-52.0); Immature Granulocytes % 2.2 %; Immature Granulocytes Absolute 0.19 #; Lymphocytes # 2.2 10*3/uL (1.4-4.0); Lymphocytes % 25.4 % (21.2-54.2); Mean Corpuscular HGB Conc 31.7 GM/DL (32-36); Mean Corpuscular Volume 92.6 FL (87-102); Mean Platelet Volume 9.7 FL (9.6-12.0); Monocytes # 0.6 10*3/uL (0.11-0.8); Monocytes % 7.1 % (1.7-12.7); Platelet Count 425 T/CUMM (130-400); Red Blood Count 4.08 MC/CUMM (3.8-5.5); Red Cell Distribution Width 13.2 % (9.3-17.3); White Blood Count 8.45 T/CUMM (4-12)
[2022-06-26 05:19] LABS: Albumin 2.9 G/DL (3.4-5.0); Bilirubin,Total 0.4 MG/DL (0.20-1.00); Calcium 9.6 MG/DL (8.5-10.1); Osmolality,Calculated 281.3 MOS/KG (273-304); Potassium 3.3 MMOL/L (3.5-5.1); Total Protein 7.2 G/DL (6.4-8.2)
[2022-06-26] MEDS: POTASSIUM BICARB EFFERVESCENT 20 MEQ TAB.EFF PER TUBE PRN ×2 (06:34→14:00)
[2022-06-26] MEDS: POTASSIUM CHLORIDE 20 MEQ TABLET PO PRN ×4 (06:59→21:15)
[2022-06-26] MEDS: ALBUTEROL 2.5 MG/3 ML NEB RESP TX SCH ×3 (07:00→19:25)
[2022-06-26] MEDS: ONDANSETRON 4 MG/2 ML VIAL IV PRN (08:20)
[2022-06-26] MEDS: PANTOPRAZOLE 40 MG VIAL IV SCH (10:02)
[2022-06-26] MEDS: chlorproMAZINE 25 MG TABLET PO SCH (10:05)
[2022-06-26] MEDS: OXcarbazepine 300 MG TABLET PO SCH (10:06)
[2022-06-26] MEDS ORDERED: SENNA 8.6 MG TABLET PO PRN (10:38)
[2022-06-26] MEDS: POLYETHYLENE GLYCOL POWDER 17 GM PACK PO SCH (11:30)
[2022-06-26] MEDS ORDERED: ZINC OXIDE PASTE 113 GM TUBE TOP PRN (12:49)
[2022-06-26] MEDS: APIXABAN 5 MG TABLET PO SCH (21:14)
[2022-06-26] MEDS: risperiDONE 1 MG TABLET PO SCH ×2 (21:14→21:15)
[2022-06-26] MEDS: SERTRALINE 25 MG TABLET PER TUBE SCH (21:15)
[2022-06-26] MEDS: levETIRAcetam 500 MG TABLET PO SCH (21:15)
[2022-06-26] MEDS: TAMSULOSIN 0.4 MG CAPSULE PO SCH (21:15)
[2022-06-26] MEDS: OLANZapine 5 MG TABLET PO SCH (21:15)
[2022-06-27] MEDS ORDERED: MELATONIN 3 MG TABLET PO ONE (01:00)
[2022-06-27 04:21] LABS: Basophils # 0.1 10*3/uL (0.0-0.2); Basophils % 1.2 % (0.0-0.8); Eosinophils # 0.1 10*3/uL (0.0-0.87); Eosinophils % 1.3 % (0.00-10.9); Hematocrit 38.9 VOL% (42.0-52.0); Hemoglobin 12.9 GM/DL (14.0-18.0); Immature Granulocytes % 3.2 %; Immature Granulocytes Absolute 0.25 #; Lymphocytes # 1.9 10*3/uL (1.4-4.0); Lymphocytes % 23.7 % (21.2-54.2); Mean Corpuscular HGB Conc 33.2 GM/DL (32-36); Mean Corpuscular Volume 91.7 FL (87-102); Mean Platelet Volume 9.5 FL (9.6-12.0); Monocytes # 0.5 10*3/uL (0.11-0.8); Monocytes % 6.4 % (1.7-12.7); Neutrophils % 64.2 % (38.7-73.9); Platelet Count 437 T/CUMM (130-400); Red Blood Count 4.24 MC/CUMM (3.8-5.5); Red Cell Distribution Width 13.3 % (9.3-17.3); White Blood Count 7.79 T/CUMM (4-12)
[2022-06-27 04:47] LABS: Calcium 9.8 MG/DL (8.5-10.1); Osmolality,Calculated 279.4 MOS/KG (273-304); Potassium 3.9 MMOL/L (3.5-5.1)
[2022-06-27] MEDS: ALBUTEROL 2.5 MG/3 ML NEB RESP TX SCH ×3 (07:27→19:57)
[2022-06-27] MEDS: levETIRAcetam 500 MG TABLET PO SCH ×2 (08:01→21:43)
[2022-06-27] MEDS: OXcarbazepine 300 MG TABLET PO SCH (08:02)
[2022-06-27] MEDS: APIXABAN 5 MG TABLET PO SCH ×2 (08:02→21:43)
[2022-06-27] MEDS: POLYETHYLENE GLYCOL POWDER 17 GM PACK PO SCH (08:17)
[2022-06-27] MEDS ORDERED: risperiDONE 1 MG TABLET PO SCH (21:30)
[2022-06-27] MEDS: TAMSULOSIN 0.4 MG CAPSULE PO SCH (21:43)
[2022-06-27] MEDS: SERTRALINE 25 MG TABLET PER TUBE SCH (21:43)
[2022-06-27] MEDS: OLANZapine 5 MG TABLET PO SCH (21:43)
[2022-06-27] MEDS: risperiDONE 1 MG TABLET PO SCH ×2 (21:45)
[2022-06-28 06:12] LABS: Calcium 9.9 MG/DL (8.5-10.1); Osmolality,Calculated 273.8 MOS/KG (273-304); Potassium 3.8 MMOL/L (3.5-5.1)
[2022-06-28 06:30] LABS: Basophils # 0.1 10*3/uL (0.0-0.2); Eosinophils # 0.2 10*3/uL (0.0-0.87); Eosinophils % 1.9 % (0.00-10.9); Hematocrit 40.2 VOL% (42.0-52.0); Hemoglobin 13.4 GM/DL (14.0-18.0); Immature Granulocytes % 2.6 %; Lymphocytes % 25.5 % (21.2-54.2); Mean Corpuscular HGB Conc 33.3 GM/DL (32-36); Mean Corpuscular Volume 89.9 FL (87-102); Mean Platelet Volume 9.6 FL (9.6-12.0); Monocytes # 0.5 10*3/uL (0.11-0.8); Platelet Count 409 T/CUMM (130-400); Red Blood Count 4.47 MC/CUMM (3.8-5.5); Red Cell Distribution Width 13.3 % (9.3-17.3)
[2022-06-28] MEDS: ALBUTEROL 2.5 MG/3 ML NEB RESP TX SCH ×3 (07:15→15:55)
[2022-06-28] MEDS: APIXABAN 5 MG TABLET PO SCH (09:29)
[2022-06-28] MEDS: OXcarbazepine 300 MG TABLET PO SCH (09:29)
[2022-06-28] MEDS: POLYETHYLENE GLYCOL POWDER 17 GM PACK PO SCH (09:29)
[2022-06-28] MEDS: levETIRAcetam 500 MG TABLET PO SCH (09:29)
[2022-06-28] MEDS: POTASSIUM BICARB EFFERVESCENT 20 MEQ TAB.EFF PER TUBE PRN (09:38)
[2022-06-28 17:01] VITALS: BP 118/59
== END 2022-06-28 16:30 | DRG 817 ==
LOC: EDBD → EDUNIT# → N.ED 20:28 → N.CC 23:04 → SUATTDRO 23:04 → N.CC 06-12 00:45 → N.TELES 06-27 16:09
PROVIDERS: ADMIT Family Medicine; ATTEND Internal Medicine